=== PATIENT | female | born 2000 | race Hispanic/Latino ===

== ENCOUNTER 2024-05-29 18:36 | Emergency (ER) | payer BC, SELFPAY ==
[2024-05-29] MEDS ORDERED: FAMOTIDINE 20 MG/2 ML VIAL IV ONE (19:38)
[2024-05-29] MEDS ORDERED: KETOROLAC 30 MG/ML INJ ONE (19:38)
[2024-05-29] MEDS ORDERED: NA CHLORIDE 0.9% 1,000 ML ONE ×2 (19:38→21:24)
[2024-05-29] MEDS ORDERED: ONDANSETRON 4 MG/2 ML VIAL ONE (19:38)
[2024-05-29 19:48] LABS: Specific Gravity 1.015 (1.005-1.030); Sqamous Epithelial <5 /HPF (None Seen); Urine Bacteria <20 /HPF (<20); Urine Bilirubin 1+ (Negative); Urine Blood 1+ (Negative); Urine Clarity Extremely Turbid (Clear); Urine Color Yellow (Yellow); Urine Culture Reflex Order NOT NEEDED; Urine Glucose NEGATIVE (Negative); Urine Ketones NEGATIVE (Negative); Urine Microscopic Reflex YN ORDER UMIC; Urine Mucus Slight /HPF (None Seen); Urine Nitrite NEGATIVE (Negative); Urine Protein TRACE (Negative); Urine RBC <5 /HPF (None Seen); Urine Urobilinogen 1+ (Normal); Urine pH 5.5 (5.0-7.0)
[2024-05-29 19:52] LABS: Absolute Eosinophils 0.1 K/uL (0-0.5); Absolute Lymphocytes (CBC) 1.2 K/uL (0.7-4.9); Absolute Monocytes 0.9 K/uL (0.1-1.3); Absolute Neutrophil 8.7 K/uL (1.8-8.0); Basophils % 0.3 % (0-1.3); Eosinophils % 0.8 % (0-4.4); Hematocrit 40.7 % (36.0-45.0); Hemoglobin 13.5 g/dL (12.0-15.0); MCH 29.3 pg (27.0-35.0); MCHC 33.1 g/dL (32.0-36.0); MCV 88.4 fL (80-100); MPV 8.1 fL (7.6-11.3); Neutrophils % 79.9 % (41.7-73.7); Platelets 341 thou/uL (152-406); Red Cell Distribution Width 13.9 % (12.1-15.2)
--- NOTE | 2024-05-29 20:05 | RAD REPORT ---
EXAMINATION: Abdomen Exam Limited CLINICAL HISTORY: [facility] MAIN Y ABD PAIN Bed Name: 8 COMPARISON: None. TECHNIQUE: Limited upper abdominal grayscale and color flow sonographic images. FINDINGS: Gallbladder: Multiple echogenic shadowing calculi at the fundus and neck. Negative sonographic Barker sign. Normal wall thickness, and no evidence of wall edema, hypervascularity, or pericholecystic fluid. Bile ducts: No intrahepatic or extrahepatic biliary dilatation. Common bile duct is dilated, measuri ng up to 1 cm. No evidence of echogenic calculi within the visualized segment of the duct. Liver: Visualized portions of the liver demonstrate normal echogenicity with no suspicious findings. Fluid: No ascites. IMPRESSION: 1. Cholelithiasis. No sonographic findings to suggest acute cholecystitis. 2. Dilated common bile duct up to 1 cm, without evidence of calculi along the visualized segment of the duct.
[2024-05-29 20:18] LABS: ALT/SGPT 345 U/L (13-56); AST/SGOT 139 U/L (15-37); Albumin 3.8 g/dL (3.4-5.0); Albumin/Globulin Ratio 0.9 (1.1-1.8); Alkaline Phosphatase 298 U/L (45-117); Anion Gap 8.9 mEq/L (5.0-15.0); BUN Blood Urea Nitrogen 7 mg/dL (7-18); Bicarbonate 28 mEq/L (21-32); Bilirubin Total 1.9 mg/dL (0.2-1.0); Globulin 4.4 g/dL (2.3-3.5); Glomerular Filtration Rate 123 ml/min (=/>90); Glucose Level 160 mg/dL (74-106); Potassium 3.9 mEq/L (3.5-5.1); Protein, Total 8.2 g/dL (6.4-8.2); Sodium Level 136 mEq/L (136-145)
[2024-05-29 20:28] LABS: Lipase > 250 U/L (13-75)
[2024-05-29] MEDS ORDERED: DIPHENHYDRAMINE 50 MG/ML VIAL ONE (21:24)
[2024-05-29] MEDS ORDERED: METHYLPREDNISOLONE 125 MG INJ ONE (21:32)
--- NOTE | 2024-05-29 21:58 | RAD REPORT ---
EXAMINATION: CT Abdomen Pelvis W Contrast CLINICAL INDICATION: Female, 24 years old. ABD PAIN TECHNIQUE: CT abdomen and pelvis was performed, after the administration of IV contrast, as [facility]. Axial, sagittal and coronal reconstructions were obtained. One or more of the following dose reduction techniques were used: Automated exposure control, adjustment of the mA and k V according to patient size, and iterative reconstruction. Unless otherwise specified, incidental findings do not require dedicated imaging follow-up. COMPARISON: Abdominal ultrasound of earlier the same day. FINDINGS: LOWER CHEST: The visualized lung bases are clear. LIVER: Normal in size and contour. No focal lesion. BILIARY SYSTEM: Mild gallbladder prominence. Prominence of the common bile duct measuring up to 1 cm in caliber, without a radiopaque calculus. Mild central intrahepatic radicle prominence as well. SPLEEN: Normal size. Ovoid cystic lesion within the anterior aspect of the spleen, measuring 3.3 cm, indeterminate, may represent a cyst or hemangioma. PANCREAS: Diffuse swelling fat stranding throughout most of the pancreatic tissue, sparing the tail. No discrete mass or calcifications. ADRENALS: Normal; no mass. KIDNEYS: Normal size and contour. No hydronephrosis. URINARY BLADDER: Unremarkable. GASTROINTESTINAL TRACT: No evidence of free air, significant intra-abdominal free fluid, bowel obstru ction or abscess. APPENDIX: Appendix not visualized, but no inflammatory changes in region of appendix. LYMPH NODES: No lymphadenopathy. MUSCULOSKELETAL: No acute or suspicious osseous abnormality. ADDITIONAL FINDINGS: None. IMPRESSION: Findings suggesting acute interstitial pancreatitis. Please correlate clinically and with pancreatic enzyme profile. Prominent common bile duct up to 1 cm. Mild central intrahepatic biliary radical prominence. If there is persistent concern for a common duct stone, MRCP would provide improved imaging assessment of the distal common bile duct. Cystic 3.3 cm lesion within the anterior aspect of the spleen, nonspecific, but may represent a cyst or hemangioma.
--- NOTE | 2024-05-29 22:16 | ER ---
Nurse's Notes [facility] Name: Serena Cunningham Age: 24 yrs Sex: Female : 2000 Arrival Date: 05/29/2024 Time: 18:36 Bed 8 Private MD: Diagnosis: Biliary acute pancreatitis;Other cholelithiasis with obstruction Presentation: 05/29 18:50 Chief complaint: Patient states: upper abd pain for a few days, worse today and then iw had vomiting today. Coronavirus screen: Client presents with at least one sign or symptom that may indicate coronavirus-19. Ebola Screen: No symptoms or risks identified at this time. Initial Sepsis Screen: Does the patient meet any 2 criteria? No. Patient's initial sepsis screen is negative. Does the patient have a suspected source of infection? No. Patient's initial sepsis screen is negative. Risk Assessment: Do you want to hurt yourself or someone else? Patient reports no desire to harm self or others. Onset of symptoms was May 26, 2024. 18:50 Method Of Arrival: Ambulatory iw 18:50 Acuity: IAIN 3 iw Historical: - Allergies: 18:51 No Known Allergies; iw - Home Meds: 18:51 None [Active]; iw - PMHx: 18:51 None; iw - PSHx: 18:51 None; iw - Immunization history:: Adult Immunizations not up to date. - Infectious Disease History:: Denies. - Social history:: Smoking status: Patient denies any tobacco usage or history of. Screenin:30 [facility] ED Fall Risk Assessment (Adult) History of falling in the last 3 months, dd2 including since admission No falls in past 3 months (0 pts) Confusion or Disorientation No (0 pts) Intoxicated or Sedated No (0 pts) Impaired Gait No (0 pts) Mobility Assist Device Used No (0 pt) Altered Elimination No (0 pt) Score/Fall Risk Level 0 - 2 = Low Risk Oriented to surroundings, Maintained a safe environment, Educated pt \T\ family on fall prevention, incl call for assistance when getting out of bed, Assessed \T\ reinforced patient's understanding of fall precautions, Hourly rounding (assess needs \T\ fall precautionary measures) done. Abuse screen: Denies threats or abuse. Nutritional screening: No deficits noted. Tuberculosis screening: No symptoms or risk factors identified. Assessment: 19:30 General: Appears in no apparent distress. Behavior is calm, cooperative, appropriate dd2 for age. Pain: Complains of pain in epigastric area and umbilical area Pain currently is 6 out of 10 on a pain scale. Neuro: Level of Consciousness is awake, alert, obeys commands, Oriented to person, place, time, situation, Appropriate for age. Cardiovascular: No deficits noted. Denies chest pain, Patient's skin is warm and dry. Respiratory: No deficits noted. Airway is patent Respiratory effort is even, unlabored, Respiratory pattern is regular, symmetrical. GI: Abdomen is round non-distended, Bowel sounds present X 4 quads. Abdomen is tender to palpation in epigastric area and umbilical area Reports upper abdominal pain, cramping, nausea, vomiting. : No signs and/or symptoms were reported regarding the genitourinary system. EENT: No deficits noted. No signs and/or symptoms were reported regarding the EENT system. Derm: No deficits noted. No signs and/or symptoms reported regarding the dermatologic system. Musculoskeletal: No deficits noted. No signs and/or symptoms reported regarding the musculoskeletal system. 21:48 Reassessment: PT RETURNED FROM CT AND BEGAN ITCHING TO THE NECK AND UPPER CHEST. dd2 DEVELOPED RAISED RED HIVES. DENIED SOB, OR DIFFICULTY BREATHING. NO SELLING TO FACE, LIPS OR THROAT NOTED. REPORTED TO MD JONATHAN AND TEO JOE. MEDICATIONS ADMINISTERED. PT IS BEING MONITORED FOR ANY CHANGES. 05/30 02:31 Reassessment: report given to selina yun at [facility]. al5 Vital Signs: 05/29 18:50 BP 154 / 95; Pulse 74; Resp 16; Temp 98.5(O); Pulse Ox 100% on R/A; Weight 128.37 kg; iw Height 5 ft. 6 in. ; Pain 7/10; 19:52 BP 135 / 93; Pulse 77; Resp 16; Pulse Ox 100% ; dd2 21:00 BP 137 / 98; Pulse 74; Resp 16; Pulse Ox 100% ; dd2 23:00 BP 137 / 95; Pulse 82; Resp 16; Pulse Ox 98% ; Pain 2/10; dd2 05/30 00:00 BP 133 / 89; Pulse 73; Resp 16; Pulse Ox 97% ; dd2 01:00 BP 129 / 99; Pulse 84; Resp 17; Pulse Ox 97% ; dd2 02:00 BP 122 / 89; Pulse 85; Resp 16; Pulse Ox 97% ; dd2 03:00 BP 129 / 90; Pulse 87; Resp 16; Pulse Ox 97% ; dd2 04:00 BP 125 / 88; Pulse 81; Resp 16; Pulse Ox 97% ; dd2 05/29 18:50 Body Mass Index 45.68 (128.37 kg, 167.64 cm) iw 05/29 18:50 Pain Scale: Adult iw 23:00 Pain Scale: Adult dd2 ED Course: 05/29 18:40 Patient arrived in ED. mr 18:41 Terrell Joe PA is PHCP. cp 18:41 Jeet Seo MD is Attending Physician. cp 18:51 Triage completed. iw 18:52 Arm band placed on. iw 19:16 RAFAELA FERMIN, SELINA is Primary Nurse. dd2 19:30 Patient has correct armband on for positive identification. Bed in low position. Call dd2 light in reach. Side rails up X 1. Client placed on continuous cardiac and pulse oximetry monitoring. NIBP monitoring applied. Door closed. Noise minimized. Warm blanket given. Pillow given. Verbal reassurance given. 19:30 No provider procedures requiring assistance completed. dd2 19:41 Initial lab(s) drawn, by me, sent to lab. Urine collected: clean catch specimen, rohit dd2 colored. Inserted saline lock: 20 gauge in right antecubital area, using aseptic technique. Blood collected. Flushed with 10 mL NS. 19:58 Abdomen Limited US In Process Unspecified. EDMS 21:08 CT Abd/Pelvis - IV Contrast Only In Process Unspecified. EDMS 21:29 Blood Culture Adult (2) Sent. dd2 21:29 Lactate w/ 2H reflex if indic. Sent. dd2 23:57 initiated transfer to [facility] spoke with Opal Swenson. vk 05/30 00:43 Mark Wu MD is Attending Physician. cp 00:46 Patient was accepted to [facility] to Dr. Logan to Rm [id number] Per Opal. vk 00:53 initiated transport with [facility] spoke with Catina URBANO 30 mins. vk 04:22 Patient transferred, IV remains in place. dd2 Administered Medications: 05/29 19:49 Drug: Ketorolac IVP 15 mg IVP once; if test negative Route: IVP; Site: right dd2 antecubital; 20:04 Follow up: Response: No adverse reaction dd2 19:50 Drug: NS 0.9% IV 1000 ml IV at 1 bolus Per protocol; 1000 mL bolus Route: IV; Rate: 1 dd2 bolus; Site: right antecubital; 20:05 Follow up: Response: No adverse reaction dd2 20:50 Follow up: IV Status: Completed infusion; IV Intake: 1000ml dd2 19:50 Drug: Ondansetron IVP 4 mg IVP once; over 2 minutes Route: IVP; Site: right antecubital;dd2 20:05 Follow up: Response: No adverse reaction dd2 19:50 Drug: Famotidine IVP 20 mg IVP once; dilute with 10 mL 0.9% NaCl; give over 2 minutes dd2 Route: IVP; Site: right antecubital; 20:05 Follow up: Response: No adverse reaction dd2 21:29 Drug: NS 0.9% IV 1000 ml IV at 1 bolus Per protocol; 1000 mL bolus Route: IV; Rate: 1 dd2 bolus; Site: right antecubital; 21:44 Follow up: Response: No adverse reaction dd2 22:29 Follow up: Response: No adverse reaction; IV Status: Completed infusion; IV Intake: dd2 1000ml 21:33 Drug: MethylPrednisoLONE IVP 125 mg IVP once Route: IVP; Site: right antecubital; dd2 21:48 Follow up: Response: No adverse reaction dd2 21:33 Drug: diphenhydrAMINE IVP 50 mg IVP once Route: IVP; Site: right antecubital; dd2 21:48 Follow up: Response: No adverse reaction dd2 22:59 Drug: Rocephin IV 1 grams IV at calculated rate once; Given slow IV push per pharmacy dd2 instructions Route: IV; Rate: calculated rate; Site: right antecubital; 23:09 Follow up: Response: No adverse reaction; IV Status: Completed infusion; IV Intake: [id number] 05/30 01:26 Drug: NS 0.9% IV 1000 ml IV at 1 bolus Per protocol; 1000 mL bolus Route: IV; Rate: 1 al5 bolus; Site: right antecubital; 01:41 Follow up: Response: No adverse reaction dd2 02:26 Follow up: IV Status: Completed infusion; IV Intake: 1000ml dd2 Medication: 05/29 19:30 VIS not applicable for this client. dd2 Intake: 20:50 IV: 1000ml; Total: 1000ml. dd2 22:29 IV: 1000ml; Total: 2000ml. dd2 23:09 IV: 10ml; Total: 2010ml. dd2 05/30 02:26 IV: 1000ml; Total: 3010ml. dd2 Outcome: 05/29 22:15 ER care complete, transfer ordered by . rogelio 05/30 04:22 Transferred by ground EMS to [facility] form completed. dd2 Condition: stable Instructed on the need for transfer, 04:24 Patient left the ED. dd2 Signatures: Dispatcher [employer] EDLayla Yin, Quan Reg Emily Arana, RN RN Terrell Gilman PA PA cp Kruse, Vivian vk Langhorst, Amanda, RN RN alRAFAELA BAUTISTA RN RN dd2 Corrections: (The following items were deleted from the chart) 05/29 19:11 18:50 BP 154 / 95; Pulse 74bpm; Resp 16bpm; Pulse Ox 100% RA; 128.37 kg; Height 5 ft. 6 iw in.; BMI: 45.6; Pain 7/10, Adult; iw 05/30 05:09 00:46 Patient was accepted to [facility] to Dr. Logan Per Opal millan
--- NOTE | 2024-05-29 22:16 | EDPHYS ---
Physician Documentation [facility] Name: Seerna Cunningham Age: 24 yrs Sex: Female : 2000 Arrival Date: 05/29/2024 Time: 18:36 Bed 8 Private MD: ED Physician Mark Wu HPI: 05/29 19:10 This 24 yrs old Female presents to ER via Ambulatory with complaints of cp Abdominal Pain, Vomiting. 19:10 The patient presents with abdominal pain in the upper abdomen, mid abdomen. The cp symptoms do not radiate. Associated signs and symptoms: Pertinent positives: nausea and vomiting. 19:10 Onset: The symptoms/episode began/occurred started few days ago, today pain worse and cp persistent. 19:10 Severity of pain: in the emergency department the pain is unchanged despite home cp interventions. Historical: - Allergies: 18:51 No Known Allergies; iw - Home Meds: 18:51 None [Active]; iw - PMHx: 18:51 None; iw - PSHx: 18:51 None; iw - Immunization history:: Adult Immunizations not up to date. - Infectious Disease History:: Denies. - Social history:: Smoking status: Patient denies any tobacco usage or history of. ROS: 19:15 Constitutional: Negative for body aches, chills, fever, poor PO intake, cp 19:15 Abdomen/GI: Positive for abdominal pain, nausea and vomiting, Negative for diarrhea, constipation, hematemesis, 19:15 Cardiovascular: Negative for chest pain, edema, palpitations, cp 19:15 Respiratory: Negative for cough, shortness of breath, wheezing, 19:15 : Negative for urinary symptoms, cp 19:15 Neuro: Negative for altered mental status, dizziness, headache, numbness, weakness, 19:15 All other systems are negative, Exam: 19:20 Constitutional: The patient appears in no acute distress, alert, awake, cp non-diaphoretic, non-toxic, well developed, well nourished, uncomfortable, 19:20 Head/Face: Normocephalic, atraumatic. cp 19:20 Eyes: Periorbital structures: appear normal, Conjunctiva: normal, no exudate, no cp injection, Sclera: no appreciated abnormality, Lids and lashes: appear normal, bilaterally, 19:20 ENT: External ear(s): are unremarkable, Nose: is normal, Mouth: Lips: moist, Oral mucosa: pink and intact, moist, Posterior pharynx: Airway: no evidence of obstruction, patent, 19:20 Chest/axilla: Inspection: normal, 19:20 Cardiovascular: Rate: normal, Rhythm: regular, 19:20 Respiratory: the patient does not display signs of respiratory distress, Respirations: normal, no use of accessory muscles, no retractions, labored breathing, is not present, Breath sounds: are clear throughout, no decreased breath sounds, no stridor, no wheezing, 19:20 Abdomen/GI: Inspection: abdomen appears normal, Bowel sounds: active, all quadrants, Palpation: soft, in all quadrants, moderate abdominal tenderness, in the epigastric area and right upper quadrant, rebound tenderness, is not appreciated, voluntary guarding, is elicited in the epigastric area and right upper quadrant, 19:20 Back: CVA tenderness, is absent, 19:20 Neuro: Orientation: to person, place \T\ time. Mentation: is normal, Motor: moves all fours, strength is normal, Vital Signs: 18:50 BP 154 / 95; Pulse 74; Resp 16; Temp 98.5(O); Pulse Ox 100% on R/A; Weight 128.37 kg; iw Height 5 ft. 6 in. ; Pain 7/10; 19:52 BP 135 / 93; Pulse 77; Resp 16; Pulse Ox 100% ; dd2 21:00 BP 137 / 98; Pulse 74; Resp 16; Pulse Ox 100% ; dd2 23:00 BP 137 / 95; Pulse 82; Resp 16; Pulse Ox 98% ; Pain 2/10; dd2 05/30 00:00 BP 133 / 89; Pulse 73; Resp 16; Pulse Ox 97% ; dd2 01:00 BP 129 / 99; Pulse 84; Resp 17; Pulse Ox 97% ; dd2 02:00 BP 122 / 89; Pulse 85; Resp 16; Pulse Ox 97% ; dd2 03:00 BP 129 / 90; Pulse 87; Resp 16; Pulse Ox 97% ; dd2 04:00 BP 125 / 88; Pulse 81; Resp 16; Pulse Ox 97% ; dd2 05/29 18:50 Body Mass Index 45.68 (128.37 kg, 167.64 cm) iw 05/29 18:50 Pain Scale: Adult iw 23:00 Pain Scale: Adult dd2 MDM: 05/29 18:45 Patient medically screened. cp 20:00 Differential diagnosis: appendicitis, cholecystitis, Cholelithiasis, pancreatitis, cp Peptic Ulcer Disease, Perf. Duodenal Ulcer, Perf. Gastric Ulcer, Ureterolithiasis, urinary tract infection. 22:30 Counseling: I had a detailed discussion with the patient and/or guardian regarding the cp historical points, exam findings, and any diagnostic results supporting the discharge/admit diagnosis, lab results, radiology results, the need to transfer to another facility, [facility] does not immediately have the required specialist. 05/30 00:49 Data reviewed: vital signs, nurses notes, lab test result(s), radiologic studies, CT cp scan, ultrasound. Management of patient was discussed with the following: DR Szymanski, physician \T\[facility], will accept patient as transfer. I considered the following discharge prescriptions or medication management in the emergency department Medications were administered in the Emergency Department. See OCT. 00:50 Response to treatment: the patient's symptoms have markedly improved after treatment, and as a result, I will discharge patient. 05/29 19:04 Order name: Urinalysis w/ reflexes; Complete Time: 20:07 cp 05/29 19:04 Order name: Test, Urine; Complete Time: 20:07 cp 05/29 19:18 Order name: CBC with Diff; Complete Time: 20:07 05/29 19:18 Order name: CMP; Complete Time: 20:35 cp 05/29 20:35 Interpretation: Normal except: GLUC 160; AST 139; ALT 345; ALK 298; BILIT 1.9; GLOB cp 4.4; A/G 0.9. 05/29 19:18 Order name: Lipase; Complete Time: 20:35 05/29 22:10 Interpretation: Reviewed. 05/29 20:36 Order name: Lactate w/ 2H reflex if indic.; Complete Time: 22:07 cp 05/29 20:36 Order name: Blood Culture Adult (2) 05/29 19:18 Order name: Abdomen Limited US; Complete Time: 20:07 cp 05/29 20:09 Order name: CT Abd/Pelvis - IV Contrast Only; Complete Time: 22:09 05/29 19:18 Order name: IV Saline Lock; Complete Time: 19:40 cp 05/29 19:18 Order name: Labs collected and sent; Complete Time: 19:40 cp 05/29 19:18 Order name: NPO; Complete Time: 19:40 cp Administered Medications: 05/29 19:49 Drug: Ketorolac IVP 15 mg IVP once; if test negative Route: IVP; Site: right dd2 antecubital; 20:04 Follow up: Response: No adverse reaction dd2 19:50 Drug: NS 0.9% IV 1000 ml IV at 1 bolus Per protocol; 1000 mL bolus Route: IV; Rate: 1 dd2 bolus; Site: right antecubital; 20:05 Follow up: Response: No adverse reaction dd2 20:50 Follow up: IV Status: Completed infusion; IV Intake: 1000ml dd2 19:50 Drug: Ondansetron IVP 4 mg IVP once; over 2 minutes Route: IVP; Site: right antecubital;dd2 20:05 Follow up: Response: No adverse reaction dd2 19:50 Drug: Famotidine IVP 20 mg IVP once; dilute with 10 mL 0.9% NaCl; give over 2 minutes dd2 Route: IVP; Site: right antecubital; 20:05 Follow up: Response: No adverse reaction dd2 21:29 Drug: NS 0.9% IV 1000 ml IV at 1 bolus Per protocol; 1000 mL bolus Route: IV; Rate: 1 dd2 bolus; Site: right antecubital; 21:44 Follow up: Response: No adverse reaction dd2 22:29 Follow up: Response: No adverse reaction; IV Status: Completed infusion; IV Intake: dd2 1000ml 21:33 Drug: MethylPrednisoLONE IVP 125 mg IVP once Route: IVP; Site: right antecubital; dd2 21:48 Follow up: Response: No adverse reaction dd2 21:33 Drug: diphenhydrAMINE IVP 50 mg IVP once Route: IVP; Site: right antecubital; dd2 21:48 Follow up: Response: No adverse reaction dd2 22:59 Drug: Rocephin IV 1 grams IV at calculated rate once; Given slow IV push per pharmacy dd2 instructions Route: IV; Rate: calculated rate; Site: right antecubital; 23:09 Follow up: Response: No adverse reaction; IV Status: Completed infusion; IV Intake: [id number] 05/30 01:26 Drug: NS 0.9% IV 1000 ml IV at 1 bolus Per protocol; 1000 mL bolus Route: IV; Rate: 1 al5 bolus; Site: right antecubital; 01:41 Follow up: Response: No adverse reaction dd2 02:26 Follow up: IV Status: Completed infusion; IV Intake: 1000ml dd2 Disposition: 17:56 Chart complete. cp Disposition Summary: 05/29/24 22:15 Transfer Ordered Notes: Reason: Higher level of care cp Condition: Stable cp Problem: new cp Symptoms: have improved cp Transfer Location: [facility](05/30/24 00:49) cp Accepting Physician: DR Szymanski(05/30/24 04:24) dd2 Diagnosis - Biliary acute pancreatitis cp - Other cholelithiasis with obstruction cp Forms: - Medication Reconciliation Form cp - SBAR form cp Addendum: 06/01/2024 09:45 I was immediately available for consultation during this patient's visit. I did not e c2 personally see the patient or discuss the patient with the ALEISHA. . Signatures: Dispatcher [employer] EDEmily Willingham RN RN iw Terrell Joe PA PA cp Mark Wu MD MD ec2 Jessica Jewell RN RN al5 RAFAELA FERMIN RN RN dd2 Corrections: (The following items were deleted from the chart) 05/29 19:18 19:18 CBC+H.LAB.BRZ ordered. EDMS EDMS 19:18 19:18 COMPREHENSIVE METABOLIC PANEL+C.LAB.BRZ ordered. EDMS EDMS 19:18 19:18 LIPASE+C.LAB.BRZ ordered. EDMS EDMS 20:09 20:09 Abdomen Pelvis W Con+CT.RAD.BRZ ordered. EDMS EDMS 05/30 00:49 05/29 22:15 Doctor cp cp 05/30 00:49 05/29 22:15 [facility] cp cp 05/30 04:24 00:49 DR Szymanski cp dd2
[2024-05-29] MEDS ORDERED: CEFTRIAXONE 1000 MG/VIAL ONE (22:51)
[2024-05-30] MEDS ORDERED: NA CHLORIDE 0.9% 1,000 ML ONE (01:22)
[2024-05-30 04:49] VITALS: TEMP 98.5
[2024-05-30 04:53] VITALS: O2SAT 97
[2024-05-30 05:00] VITALS: BP 125/88
== END 2024-05-30 04:24 | disposition short-term general hospital (02) ==
LOC: ER 18:36
DX: K85.10 Biliary acute pancreatitis without necrosis or infection (principal); K80.81 Other cholelithiasis with obstruction
CPT/HCPCS: 36415; 74177; 76705; 80053; 81001; 81025; 83605; 83690; 85025; 87040; 96361; 96374; 96375; 99285; J0696; J1200; J2405; J2919; J7030; Q9967